=== PATIENT | female | born 1960 | race Caucasian/White ===

== ENCOUNTER 2016-09-17 18:10 | Emergency (ER) | payer OTHER ==
[~2016-09-17] VITALS: Ht 167.6 cm; Wt 90.6 kg
[~2016-09-17 18:10] MED LIST: BACLOFEN10 MG PO; BENTYL10 MG PO; CHLOROQUINE PH PO; CIPRO500 MG PO; CITRATE OF MAG296 ML PO; CYMBALTA20 MG PO; ESCITALOPRAM OX10 MG PO; EVOXAC30 MG PO; GABAPENTIN300 MG PO; K-DUR20 MEQ PO; K-TAB10 MEQ PO; METHADONE10 MG PO; MOBIC15 MG PO; PANTOPRAZOLE SO40 MG PO; TRIAMTERENE-HC1 EACH PO; ZOFRAN ODT8 MG PO
[2016-09-17] MEDS ORDERED: INDOCIN25 MG PO (20:27)
[2016-09-17 21:05] VITALS: BP 123/78
== END 2016-09-17 21:05 | disposition home or self-care (01) ==
LOC: EME 18:10
DX: S22.41XA Multiple fractures of ribs, right side, initial encounter for closed fracture (principal); W10.1XXA Fall (on)(from) sidewalk curb, initial encounter; F17.200 Nicotine dependence, unspecified, uncomplicated
CPT/HCPCS: 71101; 99281; 99283; J1885